=== PATIENT | male | born 1975 | race Caucasian/White ===

== ENCOUNTER 2021-03-30 09:23 | Outpatient (CLI) | payer OTHER | END 2021-03-30 09:24 | disposition home or self-care (01) | LOC: TBSIIMAG 09:23 | PROVIDERS: ATTEND Family Medicine Sports Medicine | DX: M25.561 Pain in right knee (principal); M17.11 Unilateral primary osteoarthritis, right knee; M25.861 Other specified joint disorders, right knee ==

== ENCOUNTER 2024-04-05 13:41 | Outpatient (CLI) | payer OTHER | END 2024-04-05 13:42 | disposition home or self-care (01) | LOC: SCSRAD 13:41 | PROVIDERS: ATTEND Physician Assistant | DX: S99.912A Unspecified injury of left ankle, initial encounter (principal); S49.91XA Unspecified injury of right shoulder and upper arm, initial encounter; R07.81 Pleurodynia ==